=== PATIENT | female | born 1950 | race American Indian/Alaskan Native ===

== ENCOUNTER 2017-04-23 12:27 | Emergency (ER) | payer MEDICARE ==
[2017-04-23 14:14] LABS: Basophils # (Auto) 0.1 K/mm3 (0.0-0.1); Basophils % (Auto) 0.5 % (0.0-1.8); Eosinophils # (Auto) 0.1 K/mm3 (0.0-0.4); Eosinophils % (Auto) 0.4 % (0.0-4.3); Hematocrit 43.3 % (30.3-42.9); Hemoglobin 13.6 gm/dl (10.1-14.3); Lymphocytes # (Auto) 2.9 K/mm3 (1.2-5.4); Lymphocytes % (Auto) 22.9 % (13.4-35.0); Mean Corpuscular HGB Conc 32 % (30-34); Mean Corpuscular Hemoglobin 27 pg (28-32); Mean Corpuscular Volume 85 fl (79-97); Monocytes # (Auto) 0.7 K/mm3 (0.0-0.8); Monocytes % (Auto) 5.5 % (0.0-7.3); Platelet Count 259 K/mm3 (140-440); Red Blood Count 5.07 M/mm3 (3.65-5.03); Red Cell Distribution Width 15.9 % (13.2-15.2)
[2017-04-23 14:39] LABS: Albumin 3.5 g/dL (3.9-5); Calcium 9.3 mg/dL (8.4-10.2)
[2017-04-24] MEDS ORDERED: TORADOL IV ONE (03:28)
[2017-04-24] MEDS ORDERED: MORPHINE IV ONE (03:28)
[2017-04-24] MEDS ORDERED: ZOFRAN IV ONE (03:28)
--- NOTE | 2017-04-24 03:42 | Emergency Department Report ---
ED Abdominal Pain HPI - General Chief Complaint: Abdominal Pain Stated Complaint: ABD PAIN Time Seen by Provider: 04/24/17 02:53 Source: patient Mode of arrival: Ambulatory Limitations: No Limitations - History of Present Illness Initial Comments: 66 yo female TYPE 2 DM ,HTN,CVA X3,CHF HERE WITH C/O LEFT LOWER QUADRANT ABDOMINAL PAIN THAT BEGAN 2 DAYS AGO. SHE NORMALLY GIVES INSULIN INJECTIONS INTO HER ABDOMEN. SHE DENIES FEVER,CHILLS, N/V. PAIN IS NOT IN HER GROIN BUT HER ABDOMEN. MD Complaint: abdominal pain -: Gradual, days(s) (2) Radiation: LLQ Migration to: no migration Severity scale (0 -10): 7 Quality: aching Consistency: constant Improves With: nothing Worsens With: nothing Associated Symptoms: denies: nausea, vomiting, diarrhea, fever, chills, constipation, dysuria, melena - Related Data Previous Rx's Medication Instructions Recorded Last Taken Type Nitrofurantoin [place]/M-Cryst 100 mg PO Q12HR #14 capsule 04/24/17 Unknown Rx [Macrobid CAP] metroNIDAZOLE [Flagyl] 500 mg PO Q8HR #42 tablet 04/24/17 Unknown Rx oxyCODONE /ACETAMINOPHEN [Percocet 2 tab PO Q6HR PRN #14 tablet 04/24/17 Unknown Rx 5/325] Allergies Allergy/AdvReac Type Severity Reaction Status Date / Time No Known Allergies Allergy Unverified 04/23/17 13:03 ED Review of Systems ROS: Stated complaint: ABD PAIN Other details as noted in HPI Constitutional: denies: chills, fever Eyes: denies: eye pain, eye discharge, vision change ENT: denies: ear pain, throat pain Respiratory: denies: cough, shortness of breath, wheezing Cardiovascular: denies: chest pain, palpitations Endocrine: no symptoms reported Gastrointestinal: denies: nausea, vomiting, diarrhea, constipation Genitourinary: denies: urgency, dysuria, discharge Musculoskeletal: denies: back pain, joint swelling, arthralgia Skin: denies: rash, lesions Neurological: denies: headache, weakness, paresthesias Psychiatric: denies: anxiety, depression Hematological/Lymphatic: denies: easy bleeding, easy bruising ED Past Medical Hx - Past Medical History Hx Hypertension: Yes Hx CVA: Yes (X3) Hx Congestive Heart Failure: Yes Hx Diabetes: Yes (TYPE II) - Surgical History Past Surgical History?: No - Social History Smoking Status: Never Smoker Substance Use Type: None - Medications Home Medications: Home Medications Medication Instructions Recorded Confirmed Last Taken Type Nitrofurantoin [place]/M-Cryst 100 mg PO Q12HR #14 capsule 04/24/17 Unknown Rx [Macrobid CAP] metroNIDAZOLE [Flagyl] 500 mg PO Q8HR #42 tablet 04/24/17 Unknown Rx oxyCODONE /ACETAMINOPHEN [Percocet 2 tab PO Q6HR PRN #14 tablet 04/24/17 Unknown Rx 5/325] ED Physical Exam - General Limitations: No Limitations General appearance: alert, in no apparent distress - Head Head exam: Present: atraumatic, normocephalic - Eye Eye exam: Present: normal appearance, EOMI - ENT ENT exam: Present: mucous membranes moist - Neck Neck exam: Present: normal inspection - Respiratory Respiratory exam: Present: normal lung sounds bilaterally, rales (RIGHT BASE OF LUNG). Absent: respiratory distress - Cardiovascular Cardiovascular Exam: Present: regular rate, normal rhythm. Absent: systolic murmur, diastolic murmur, rubs, gallop - GI/Abdominal GI/Abdominal exam: Present: soft, normal bowel sounds - Rectal Rectal exam: Present: deferred - Extremities Exam Extremities exam: Present: normal inspection - Back Exam Back exam: Present: normal inspection - Neurological Exam Neurological exam: Present: alert, oriented X3 - Psychiatric Psychiatric exam: Present: normal affect, normal mood - Skin Skin exam: Present: warm, dry, intact, normal color. Absent: rash ED Course Vital Signs 04/23/17 04/24/17 04/24/17 12:56 02:22 03:57 Temperature 98.3 F 98.3 F Pulse Rate 107 H 71 Respiratory 20 16 16 Rate Blood Pressure 107/69 Blood Pressure 162/90 [Right] O2 Sat by Pulse 96 97 Oximetry 04/24/17 04:27 Temperature Pulse Rate Respiratory 16 Rate Blood Pressure Blood Pressure [Right] O2 Sat by Pulse Oximetry ED Medical Decision Making - Lab Data Result diagrams: 04/23/17 13:41 04/23/17 13:41 - Radiology Data Radiology results: report reviewed (CT ABD/PELVIS: ACUTE DIVERTICULITIS IN DISTAL DESCENDING AND PROXIMAL COLON, 4MM LESION RIGHT HEPATIC LOBE,GALLBLADDER POLYP) Critical care attestation.: If time is entered above; I have spent that time in minutes in the direct care of this critically ill patient, excluding procedure time. ED Disposition Clinical Impression: Diverticulitis Abdominal pain Qualifiers: Abdominal location: lower abdomen, unspecified Qualified Code(s): R10.30 - Lower abdominal pain, unspecified UTI (urinary tract infection) Qualifiers: Urinary tract infection type: acute cystitis Hematuria presence: with hematuria Qualified Code(s): N30.01 - Acute cystitis with hematuria Disposition: TO HOME OR SELFCARE Is pt being admited?: No Does the pt Need Aspirin: No Condition: Stable Instructions: Abdominal Pain (ED), Diverticulitis (ED), Urinary Tract Infection in Women (ED) Additional Instructions: RETURN TO THE ER IF YOUR PAIN GETS TOO SEVERE, OR IF YOU HAVE FEVER, NAUSEA, VOMITING OR FOR ANY CONCERNS . FOLLOW UP WITH YOUR DOCTOR IN2 DAYS PLEASE TAKE ALL YOUR MEDICATION ASA WRITTEN Prescriptions: metroNIDAZOLE [Flagyl] 500 mg PO Q8HR #42 tablet Nitrofurantoin [place]/M-Cryst [Macrobid CAP] 100 mg PO Q12HR #14 capsule oxyCODONE /ACETAMINOPHEN [Percocet 5/325] 2 tab PO Q6HR PRN #14 tablet PRN Reason: Pain Referrals: LAURA REED MD [Primary Care Provider] - 3-5 Days Time of Disposition: 07:25
[2017-04-24 05:22] LABS: Bacteria,Urine 4+ /HPF (Negative); Bilirubin,Urine NEG (Negative); Blood,Urine NEG (Negative); Color,Urine Yellow (Yellow); Mucus,Urine 1+ /HPF; Nitrite,Urine NEG (Negative); Urobilinogen,Urine < 2.0 mg/dL (<2.0)
[2017-04-24] MEDS ORDERED: LEVAQUIN 750MG/150ML 750 MG/150 ML BAG IV ONE (06:05)
--- NOTE | 2017-04-24 06:58 | Cat Scan Report ---
FINAL REPORT EXAM: CT ABDOMEN PELVIS W/O CONTRAST HISTORY: LEFT LOWER QUADRANT PAIN. TECHNIQUE: Axial CT images of the abdomen and pelvis were obtained, following the administration of oral contrast only. Coronal and sagittal reformatted images were also obtained. No prior studies are available for comparison. FINDINGS: There is a 4 mm low attenuating lesion in the posteromedial right hepatic lobe, statistically likely cyst, but too small to characterize. The unenhanced biliary tree, pancreas, spleen, adrenal glands, and kidneys are unremarkable. There is a 2 mm hyperdensity in the gallbladder lumen, representing tiny gallstone versus polyp. Oral contrast has just started to reach the cecum on this exam. There are multiple diverticula scattered throughout the colon, most prominent in the descending and sigmoid colon. There are mild focal pericolonic inflammatory changes adjacent to the lateral aspect of the distal descending colon/proximal sigmoid colon, with mild soft tissue stranding and haziness of the pericolonic fat. There is associated mild thickening of the lateral posterior colonic wall at this region, and mild fluid in the left paracolic recess. These findings are indicative of acute diverticulitis. There is no loculated fluid collection seen to suggest abscess. There is no intestinal obstruction or free air. Of note, the appendix is normal. There is a small fat containing periumbilical ventral hernia. The abdominal aorta is normal in caliber. There is no pathologic abdominal or pelvic lymphadenopathy. The uterus and adnexa demonstrate a grossly normal CT appearance for patient's age. The unopacified urinary bladder is partially collapsed, not well evaluated. There are [id number] spondylotic changes seen throughout the spine. There are moderate degenerative changes at L4-5 and L5-S1, with associated vacuum discs, loss of disc height, and moderate facet osteoarthritis. There is 5 mm anterolisthesis of L4 on L5. There are mild dependent changes at both posterior lung bases. Mild linear scarring or atelectasis is seen in the anterior left lower lobe. IMPRESSION: 1. Colonic diverticulosis, with findings of acute diverticulitis in the distal descending/proximal sigmoid colon. No loculated fluid collection seen to suggest abscess. No intestinal obstruction or free air. 2. 4 mm low attenuating lesion in the right hepatic lobe, too small to characterize. 3. 2 mm hyperdensity in the gallbladder lumen, representing tiny gallstone versus polyp. This can be further evaluated with ultrasound, as clinically warranted.
[2017-04-24 08:46] VITALS: BP 127/57
== END 2017-04-24 09:09 | disposition home or self-care (01) ==
LOC: ED 12:27
DX: K57.92 Diverticulitis of intestine, part unspecified, without perforation or abscess without bleeding (principal); N30.01 Acute cystitis with hematuria; R10.32 Left lower quadrant pain; I10 Essential (primary) hypertension; Z86.73 Personal history of transient ischemic attack (TIA), and cerebral infarction without residual deficits; E11.9 Type 2 diabetes mellitus without complications; I50.9 Heart failure, unspecified
CPT/HCPCS: 36415; 74177; 80053; 81001; 82962; 83690; 83880; 85025; 96365; 96375; 99284; J1885; J1956; J2270; J2405; Q9967

== ENCOUNTER 2017-08-20 12:45 | Emergency (ER) | payer MEDICARE ==
[2017-08-20] MEDS ORDERED: ZOFRAN ONE (12:52)
[2017-08-20] MEDS ORDERED: NORMODYNE IV ONE ×3 (12:52→13:27)
[2017-08-20] MEDS ORDERED: ZOFRAN IV ONE (13:27)
[2017-08-20 13:33] LABS: Basophils % (Auto) 0.5 % (0.0-1.8); Eosinophils # (Auto) 0.2 K/mm3 (0.0-0.4); Eosinophils % (Auto) 2.3 % (0.0-4.3); Hematocrit 43.4 % (30.3-42.9); Hemoglobin 13.7 gm/dl (10.1-14.3); Mean Corpuscular HGB Conc 32 % (30-34); Mean Corpuscular Hemoglobin 27 pg (28-32); Mean Corpuscular Volume 85 fl (79-97); Monocytes # (Auto) 0.4 K/mm3 (0.0-0.8); Monocytes % (Auto) 4.8 % (0.0-7.3); Platelet Count 194 K/mm3 (140-440); Red Cell Distribution Width 16.1 % (13.2-15.2)
--- NOTE | 2017-08-20 13:33 | Cat Scan Report ---
CT scan of head without IV contrast: No previous studies of the liver. History: Mental status. Findings: Ventricles are normal in size and midline in location. There is circumscribed focal area of hemorrhage measuring 1.7 x 1.4 cm in diameter noted at medulla with extension to the erin and midbrain the right of midline. There is ill-defined area of low attenuation noted at left posterior parietal region adjacent to midline and in the midportion of the left frontoparietal region. No extra-axial fluid collection. Normal sinuses and mastoid air cells. Impression: There is brainstem hemorrhage noted as detailed above. Ill-defined areas of low attenuation in the left occipital region and left frontoparietal region probably suggests chronic ischemia though possibly acute ischemia cannot be entirely excluded. Dr. Lamin Cyr was informed of the findings at 1:08 PM on 08/20/17. [place]
[2017-08-20] MEDS ORDERED: APRESOLINE IV ONE (13:36)
--- NOTE | 2017-08-20 13:36 | Emergency Department Report ---
ED Altered Mental Status HPI - General Stated Complaint: UNRESPONSIVE Time Seen by Provider: 08/20/17 12:56 Source: family, EMS Limitations: Altered Mental Status, Physical Limitation - History of Present Illness Initial Comments: Patient with history of CVA MD Complaint: altered mental status, confusion (Sister reports patient has been falling out of bed all morning ) -: hour(s) Severity: severe Consistency of Symptoms: constant - Related Data Previous Rx's Medication Instructions Recorded Last Taken Type Nitrofurantoin [place]/M-Cryst 100 mg PO Q12HR #14 capsule 04/24/17 Unknown Rx [Macrobid CAP] metroNIDAZOLE [Flagyl] 500 mg PO Q8HR #42 tablet 04/24/17 Unknown Rx oxyCODONE /ACETAMINOPHEN [Percocet 2 tab PO Q6HR PRN #14 tablet 04/24/17 Unknown Rx 5/325] Allergies Allergy/AdvReac Type Severity Reaction Status Date / Time No Known Allergies Allergy Unverified 04/23/17 13:03 ED Review of Systems ROS: Stated complaint: UNRESPONSIVE Other details as noted in HPI Comment: Unobtainable due to pts medical conditions ED Past Medical Hx - Past Medical History Hx Hypertension: Yes Hx CVA: Yes (X3) Hx Congestive Heart Failure: Yes Hx Diabetes: Yes (TYPE II) - Social History Smoking Status: Never Smoker Substance Use Type: None - Medications Home Medications: Home Medications Medication Instructions Recorded Confirmed Last Taken Type Nitrofurantoin [place]/M-Cryst 100 mg PO Q12HR #14 capsule 04/24/17 Unknown Rx [Macrobid CAP] metroNIDAZOLE [Flagyl] 500 mg PO Q8HR #42 tablet 04/24/17 Unknown Rx oxyCODONE /ACETAMINOPHEN [Percocet 2 tab PO Q6HR PRN #14 tablet 04/24/17 Unknown Rx 5/325] ED Physical Exam - Other Other exam information: GENERAL: Patient in severe distress. No gag reflex on presentation HEAD: Normocephalic, atraumatic EYES: eyes deviated to the left, sluggish pupillary response HEART: Regular rate and rhythm, no murmur, S1-S2 are auscultated, pulses are symmetric LUNGS: bilateral breath sounds ABDOMEN: soft, no tenderness MUSCULOSKELETAL: no redness, no swelling, no tenderness NEUROLOGIC: no gag reflex, GCS 7, left sided weakness SKIN: Skin is warm and dry, no wounds, no rashes - Assessment Assessment Interval: Baseline - Level of Consciousness 1a. Level of Consciousness: not alert, rep stimuli - LOC Questions 1b. LOC Questions: answers no questions correctly - LOC Command 1c. LOC Commands: performs no tasks correctly - Best Gaze 2. Best Gaze: forced deviation (eyes deviated left) - Visual 3. Visual: complete hemianopia - Facial Palsy 4. Facial Palsy: complete paralysis - Motor Arm 5b. Motor Arm Right: no movement 5a. Motor Arm Left: some gravity effort - Motor Leg 6a. Motor Leg Left: no movement 6b. Motor Leg Right: some gravity effort - Limb Ataxia 7. Limb Ataxia: present 2 limbs - Sensory 8. Sensory: severe/total sensory loss - Best Language 9. Best Language: mute/global aphasia - Dysarthria 10. Dysarthria: intubated or other barrier - Extinction and Inattention 11. Extinction/Inattention: profound inattention ED Course Vital Signs 08/20/17 08/20/17 08/20/17 12:44 12:46 12:47 Pulse Rate 74 96 H Respiratory 21 Rate Blood Pressure 202/124 O2 Sat by Pulse 95 95 96 Oximetry 08/20/17 08/20/17 08/20/17 13:20 13:30 13:46 Pulse Rate 81 74 68 Respiratory 16 20 20 Rate Blood Pressure 184/128 189/128 196/132 O2 Sat by Pulse 100 100 100 Oximetry - Intubation Time Out Performed: Yes Sedative: Etomidate Paralytic: Rocuronium Laryngoscope: Denilson Size: 4 ET Tube Size: 7.5 Tube Secured Depth (cm): 23 Tube Secured Location: lips Tube Placement Confirmation: visualized tube passing t, equal breath sounds bilat, no breath sounds over epi, confirmation by capnometr Patient Tolerated Procedure: well Intubation Complications: none - Lab Data Result diagrams: 08/20/17 13:15 08/20/17 13:15 Lab Results 08/20/17 08/20/17 08/20/17 Range/Units 13:06 13:15 13:15 WBC 7.7 (4.5-11.0) K/mm3 RBC 5.10 H (3.65-5.03) M/mm3 Hgb 13.7 (10.1-14.3) gm/dl Hct 43.4 H (30.3-42.9) % MCV 85 (79-97) fl MCH 27 L (28-32) pg MCHC 32 (30-34) % RDW 16.1 H (13.2-15.2) % Plt Count 194 (140-440) K/mm3 Lymph % (Auto) 26.0 (13.4-35.0) % [place] % (Auto) 4.8 (0.0-7.3) % Eos % (Auto) 2.3 (0.0-4.3) % Baso % (Auto) 0.5 (0.0-1.8) % Lymph # 2.0 (1.2-5.4) K/mm3 [place] # 0.4 (0.0-0.8) K/mm3 Eos # 0.2 (0.0-0.4) K/mm3 Baso # 0.0 (0.0-0.1) K/mm3 Seg Neutrophils % 66.4 (40.0-70.0) % Seg Neutrophils # 5.1 (1.8-7.7) K/mm3 PT (12.2-14.9) Sec. INR (0.87-1.13) APTT (24.2-36.6) Sec. Sodium (137-145) mmol/L Potassium (3.6-5.0) mmol/L Chloride (98-107) mmol/L Carbon Dioxide (22-30) mmol/L Anion Gap mmol/L BUN (7-17) mg/dL Creatinine (0.7-1.2) mg/dL Estimated GFR ml/min BUN/Creatinine Ratio % Glucose (65-100) mg/dL POC Glucose 210 H (70-105) Lactic Acid 1.60 (0.7-2.0) mmol/L Calcium (8.4-10.2) mg/dL Total Bilirubin (0.1-1.2) mg/dL AST (5-40) units/L ALT (7-56) units/L Alkaline Phosphatase (35-129) units/L Total Protein (6.3-8.2) g/dL Albumin (3.9-5) g/dL Albumin/Globulin Ratio % Lipase (13-60) units/L Blood Type 08/20/17 08/20/17 08/20/17 Range/Units 13:15 13:15 13:15 WBC (4.5-11.0) K/mm3 RBC (3.65-5.03) M/mm3 Hgb (10.1-14.3) gm/dl Hct (30.3-42.9) % MCV (79-97) fl MCH (28-32) pg MCHC (30-34) % RDW (13.2-15.2) % Plt Count (140-440) K/mm3 Lymph % (Auto) (13.4-35.0) % [place] % (Auto) (0.0-7.3) % Eos % (Auto) (0.0-4.3) % Baso % (Auto) (0.0-1.8) % Lymph # (1.2-5.4) K/mm3 [place] # (0.0-0.8) K/mm3 Eos # (0.0-0.4) K/mm3 Baso # (0.0-0.1) K/mm3 Seg Neutrophils % (40.0-70.0) % Seg Neutrophils # (1.8-7.7) K/mm3 PT 31.3 H (12.2-14.9) Sec. INR 2.79 H (0.87-1.13) APTT 35.3 (24.2-36.6) Sec. Sodium 138 (137-145) mmol/L Potassium 3.4 L (3.6-5.0) mmol/L Chloride 104.1 (98-107) mmol/L Carbon Dioxide 17 L (22-30) mmol/L Anion Gap 20 mmol/L BUN 35 H (7-17) mg/dL Creatinine 1.7 H (0.7-1.2) mg/dL Estimated GFR 36 ml/min BUN/Creatinine Ratio 21 % Glucose 224 H (65-100) mg/dL POC Glucose (70-105) Lactic Acid (0.7-2.0) mmol/L Calcium 8.8 (8.4-10.2) mg/dL Total Bilirubin 0.20 (0.1-1.2) mg/dL AST 20 (5-40) units/L ALT 18 (7-56) units/L Alkaline Phosphatase 80 (35-129) units/L Total Protein 6.9 (6.3-8.2) g/dL Albumin 3.5 L (3.9-5) g/dL Albumin/Globulin Ratio 1.0 % Lipase 16 (13-60) units/L Blood Type O POSITIVE Laboratory Results - last 24 hr 08/20/17 08/20/17 08/20/17 13:06 13:15 13:15 WBC 7.7 RBC 5.10 H Hgb 13.7 Hct 43.4 H MCV 85 MCH 27 L MCHC 32 RDW 16.1 H Plt Count 194 Lymph % (Auto) 26.0 [place] % (Auto) 4.8 Eos % (Auto) 2.3 Baso % (Auto) 0.5 Lymph # 2.0 [place] # 0.4 Eos # 0.2 Baso # 0.0 Seg Neutrophils % 66.4 Seg Neutrophils # 5.1 PT INR APTT Sodium Potassium Chloride Carbon Dioxide Anion Gap BUN Creatinine Estimated GFR BUN/Creatinine Ratio Glucose POC Glucose 210 H Lactic Acid 1.60 Calcium Total Bilirubin AST ALT Alkaline Phosphatase Total Protein Albumin Albumin/Globulin Ratio Lipase Blood Type Antibody Screen 08/20/17 08/20/17 08/20/17 13:15 13:15 13:15 WBC RBC Hgb Hct MCV MCH MCHC RDW Plt Count Lymph % (Auto) [place] % (Auto) Eos % (Auto) Baso % (Auto) Lymph # [place] # Eos # Baso # Seg Neutrophils % Seg Neutrophils # PT 31.3 H INR 2.79 H APTT 35.3 Sodium 138 Potassium 3.4 L Chloride 104.1 Carbon Dioxide 17 L Anion Gap 20 BUN 35 H Creatinine 1.7 H Estimated GFR 36 BUN/Creatinine Ratio 21 Glucose 224 H POC Glucose Lactic Acid Calcium 8.8 Total Bilirubin 0.20 AST 20 ALT 18 Alkaline Phosphatase 80 Total Protein 6.9 Albumin 3.5 L Albumin/Globulin Ratio 1.0 Lipase 16 Blood Type O POSITIVE Antibody Screen Negative - Radiology Data Radiology results: report reviewed At 1327 Radiology reports rightsided medulla, erin, midbrain hemorrhage. - Medical Decision Making At 1404 Dr. Shultz from [place] (present on the phone line are both Neurosurgery and Neurology) recommend [facility] to reverse INR, Vitamin K 10 mg IV, Maintain SBP < 160, fly to [place], poor prognosis. Dr. Shultz accepting physician - NEXUS Criteria Focal neurological deficit present: Yes NEXUS results: C-Spine cannot be cleared clinically by these results. Imaging is required. Critical Care Time: Yes Critical care time in (mins) excluding proc time.: 42 Critical care attestation.: If time is entered above; I have spent that time in minutes in the direct care of this critically ill patient, excluding procedure time. ED Disposition Clinical Impression: Intracranial hemorrhage, Hypertensive emergency, Elevated INR Disposition: DC/TX-70 ANOTHER TYPE HLTHCARE Is pt being admited?: No Condition: Stable Instructions: Hypertension (ED) Time of Disposition: 14:16
--- NOTE | 2017-08-20 13:42 | Cat Scan Report ---
CT scan of cervical spine: Next History: Fall. Findings: Normal height of vertebral bodies. Decrease in height of the C5-C6 and C6-C7. Sclerotic articular surfaces with peripheral osteophytes suggestive of cervical spondylosis. No fracture. Normal prevertebral soft tissue. Impression: Moderate to severe cervical spondylosis C5-C6 and C6-7. No evidence of acute fracture.
[2017-08-20 13:44] LABS: INR 2.79 (0.87-1.13); Partial Thromboplastin Time 35.3 Sec. (24.2-36.6)
[2017-08-20 13:48] LABS: Albumin 3.5 g/dL (3.9-5); Calcium 8.8 mg/dL (8.4-10.2)
[2017-08-20] MEDS ORDERED: CARDENE 50 MG in NACL 0.9% 250ML 230 ML IV SCH (14:00)
--- NOTE | 2017-08-20 14:19 | XRay Report ---
Single view chest: History: Post intubation. Findings: Borderline cardiomegaly. Tip of endotracheal tube in normal position. Trachea is midline. Mild pulmonary venous congestion due to no consolidation or pleural effusion. Impression: Mild pulmonary venous congestion. No pneumothorax. A
[2017-08-20] MEDS ORDERED: ARTIFICIAL TEARS OPHTH OINT OU PRN (14:31)
[2017-08-20] MEDS ORDERED: DIPRIVAN 10 MG/ML 1,000 MG/100 ML BOTTLE IV ONE (14:31)
[2017-08-20] MEDS ORDERED: VASELINE LIP THERAPY TP PRN (14:31)
[2017-08-20] MEDS ORDERED: NACL 0.9% 1000 ML 1,000 ML ONE (14:48)
[2017-08-20 14:53] LABS: Bacteria,Urine 1+ /HPF (Negative); Bilirubin,Urine NEG (Negative); Blood,Urine NEG (Negative); Color,Urine Straw (Yellow); Urobilinogen,Urine < 2.0 mg/dL (<2.0)
[2017-08-20 14:54] LABS: Protein,Urine >500 mg/dL (Negative)
[2017-08-20] MEDS ORDERED: NACL 0.9% 1000 ML 1,000 ML IV ONE (14:56)
[2017-08-20] MEDS ORDERED: NACL 0.9% 500 ML IV SCH (15:00)
[2017-08-20] MEDS ORDERED: VITAMIN K (ADULT ONLY) 10 MG in NACL 0.9% 50 ML IV ONE (15:00)
[2017-08-20] MEDS ORDERED: DIPRIVAN 10 MG/ML 1,000 MG/100 ML BOTTLE IV SCH (15:00)
[2017-08-20 15:17] VITALS: BP 139/87
[2017-08-20] MEDS ORDERED: KCENTRA IV SCH (16:00)
[2017-08-20] MEDS ORDERED: STERILE WATER IV SCH (16:00)
== END 2017-08-20 15:12 | disposition other institution (70) ==
LOC: ED 12:45
DX: I62.9 Nontraumatic intracranial hemorrhage, unspecified (principal); I10 Essential (primary) hypertension; E11.9 Type 2 diabetes mellitus without complications
CPT/HCPCS: 31500; 36415; 51702; 70450; 71045; 72125; 80053; 81001; 82140; 82803; 82962; 83690; 83880; 84484; 85025; 85610; 85730; 86850; 86900; 86901; 87040; 94002; 96365; 96368; 96375; 99291; J0360; J2405; J2704; J3430; J7030; J7050; J7195

== ENCOUNTER 2017-11-04 11:56 | Emergency (ER) | payer MEDICARE ==
[2017-11-04] MEDS ORDERED: NACL 0.9% 1000 ML 1,000 ML IV ONE (13:08)
--- NOTE | 2017-11-04 13:28 | Emergency Department Report ---
ED General Adult HPI - General Chief complaint: Abdominal Pain Stated complaint: ABOMINAL PAIN Time Seen by Provider: 11/04/17 13:16 Source: patient, old records reviewed Mode of arrival: Stretcher Limitations: No Limitations, Physical Limitation - History of Present Illness Initial comments: This is a 67-year-old female who was unknown to this provider previously, has a past medical history of renal insufficiency, stroke, right-sided facial paresis , left lower extremity weakness, feeding tube, diverticulosis, diverticulitis. The patient presents to the ER with a complaint of left lower quadrant and suprapubic abdominal pain which is sharp and aching, increases with palpation, decreases with rest, and associated with no vomiting or urinary symptoms, intermittent brownish diarrhea. No recent travel, no recent antibiotic use. The patient endorses intermittent nausea. There is no chest pain or shortness of breath which is new or different. -: Gradual Location: abdomen Quality: aching Consistency: intermittent Improves with: rest Worsens with: movement Associated Symptoms: loss of appetite, malaise, nausea/vomiting, weakness. denies: confusion, chest pain, cough, diaphoresis, fever/chills, headaches, rash , seizure, shortness of breath, syncope - Related Data Previous Rx's Medication Instructions Recorded Last Taken Type Nitrofurantoin Ogle/M-Cryst 100 mg PO Q12HR #14 capsule 04/24/17 Unknown Rx [Macrobid CAP] metroNIDAZOLE [Flagyl] 500 mg PO Q8HR #42 tablet 04/24/17 Unknown Rx oxyCODONE /ACETAMINOPHEN [Percocet 2 tab PO Q6HR PRN #14 tablet 04/24/17 Unknown Rx 5/325] Acetaminophen [Tylenol Arthritis] 650 mg PO Q6HR PRN #30 tablet.er 11/04/17 Unknown Rx Famotidine [Pepcid] 20 mg PO QDAY #30 tablet 11/04/17 Unknown Rx Ondansetron [Zofran Odt] 4 mg PO Q8HR PRN #20 tab.rapdis 11/04/17 Unknown Rx Allergies Allergy/AdvReac Type Severity Reaction Status Date / Time No Known Allergies Allergy Unverified 04/23/17 13:03 ED Review of Systems ROS: Stated complaint: ABOMINAL PAIN Other details as noted in HPI Constitutional: malaise Eyes: denies: vision change ENT: denies: epistaxis Respiratory: denies: cough Cardiovascular: denies: chest pain Gastrointestinal: abdominal pain. denies: constipation Genitourinary: denies: dysuria Musculoskeletal: arthralgia Skin: denies: lesions Neurological: weakness ED Past Medical Hx - Past Medical History Hx Hypertension: Yes Hx CVA: Yes (X3) Hx Congestive Heart Failure: Yes Hx Diabetes: Yes (TYPE II) - Surgical History Past Surgical History?: Yes Additional Surgical History: g tube placement - Social History Smoking Status: Never Smoker Substance Use Type: None - Medications Home Medications: Home Medications Medication Instructions Recorded Confirmed Last Taken Type Nitrofurantoin Ogle/M-Cryst 100 mg PO Q12HR #14 capsule 04/24/17 Unknown Rx [Macrobid CAP] metroNIDAZOLE [Flagyl] 500 mg PO Q8HR #42 tablet 04/24/17 Unknown Rx oxyCODONE /ACETAMINOPHEN [Percocet 2 tab PO Q6HR PRN #14 tablet 04/24/17 Unknown Rx 5/325] Acetaminophen [Tylenol Arthritis] 650 mg PO Q6HR PRN #30 tablet.er 11/04/17 Unknown Rx Famotidine [Pepcid] 20 mg PO QDAY #30 tablet 11/04/17 Unknown Rx Ondansetron [Zofran Odt] 4 mg PO Q8HR PRN #20 tab.rapdis 11/04/17 Unknown Rx ED Physical Exam - General Limitations: Physical Limitation General appearance: alert, in no apparent distress - Head Head exam: Present: atraumatic, normocephalic - Eye Eye exam: Present: normal appearance, EOMI. Absent: nystagmus - ENT ENT exam: Present: normal orophraynx, mucous membranes moist - Neck Neck exam: Present: normal inspection, full ROM - Respiratory Respiratory exam: Present: normal lung sounds bilaterally. Absent: respiratory distress - Cardiovascular Cardiovascular Exam: Present: regular rate, normal rhythm, normal heart sounds. Absent: systolic murmur, diastolic murmur, rubs, gallop - GI/Abdominal GI/Abdominal exam: Present: soft, tenderness, normal bowel sounds, other ( feeding tube is noted in the suprapubic region. There is left lower quadrant ecchymosis noted, suggestive of recent anticoagulation injection.). Absent: distended, guarding, rebound, rigid, pulsatile mass - Extremities Exam Extremities exam: Present: normal inspection, full ROM. Absent: tenderness, pedal edema, joint swelling, calf tenderness - Back Exam Back exam: Present: normal inspection, full ROM. Absent: tenderness, CVA tenderness (R), paraspinal tenderness, vertebral tenderness - Neurological Exam Neurological exam: Present: alert, oriented X3, motor sensory deficit (there is 4 out of 5 strength in the left lower extremity. This is chronic. There is 5 out of 5 strength in the bilateral upper extremities and right lower extremity. Sensation is intact to light touch in 4 extremities.). Absent: CN II-XII intact (extraocular movements are intact. Right-sided facial weakness. Tongue is midline. Speech is slurred, this is chronic as per the patient.) - Psychiatric Psychiatric exam: Present: normal affect, normal mood - Skin Skin exam: Present: warm, dry, intact, normal color. Absent: rash ED Course Vital Signs 11/04/17 11/04/17 11/04/17 12:28 12:53 13:31 Temperature 98 F Pulse Rate 90 90 93 H Respiratory 16 25 H 18 Rate Blood Pressure 135/77 145/84 O2 Sat by Pulse 98 99 Oximetry 11/04/17 11/04/17 11/04/17 14:00 14:30 15:00 Temperature Pulse Rate 89 87 90 Respiratory 20 16 Rate Blood Pressure 144/92 168/94 159/96 O2 Sat by Pulse 99 99 99 Oximetry 11/04/17 11/04/17 11/04/17 15:30 16:15 16:31 Temperature Pulse Rate 87 94 H 93 H Respiratory 22 22 Rate Blood Pressure 168/97 O2 Sat by Pulse 99 99 100 Oximetry - Reevaluation(s) Reevaluation #1: 11/04/17 17:39 Differential diagnosis, including not limited to: Hernia, constipation, diverticulitis, diverticulosis, anterior abdominal wall ecchymosis, anterior abdominal wall hematoma Assessment and plan: 67-year-old female with reproducible abdominal wall tenderness and ecchymosis, appears to be in distribution of Lovenox/ anticoagulation distribution in the left lower quadrant. Laboratory studies otherwise appear to be at baseline, has chronic renal insufficiency, increased CO2 on laboratory studies may be secondary to underlying renal insufficiency. The patient's pain and symptoms were treated with nonnarcotic pain medication, she was observed in the ER for hours without clinical decompensation, and she will be discharged home with prescriptions for pain medicine nausea medicine, and instructions follow up with outpatient primary care. ED Medical Decision Making - Lab Data Result diagrams: 11/04/17 13:37 11/04/17 13:37 Vital Signs 11/04/17 11/04/17 11/04/17 12:28 12:53 13:31 Temperature 98 F Pulse Rate 90 90 93 H Respiratory 16 25 H 18 Rate Blood Pressure 135/77 145/84 O2 Sat by Pulse 98 99 Oximetry 11/04/17 11/04/17 11/04/17 14:00 14:30 15:00 Temperature Pulse Rate 89 87 90 Respiratory 20 16 Rate Blood Pressure 144/92 168/94 159/96 O2 Sat by Pulse 99 99 99 Oximetry 11/04/17 11/04/17 11/04/17 15:30 16:15 16:31 Temperature Pulse Rate 87 94 H 93 H Respiratory 22 22 Rate Blood Pressure 168/97 O2 Sat by Pulse 99 99 100 Oximetry Lab Results 11/04/17 11/04/17 11/04/17 Range/Units 13:37 13:37 13:37 WBC 11.3 H (4.5-11.0) K/mm3 RBC 4.21 (3.65-5.03) M/mm3 Hgb 11.2 (10.1-14.3) gm/dl Hct 37.0 (30.3-42.9) % MCV 88 (79-97) fl MCH 27 L (28-32) pg MCHC 30 (30-34) % RDW 17.2 H (13.2-15.2) % Plt Count 366 (140-440) K/mm3 PT (12.2-14.9) Sec. INR (0.87-1.13) APTT (24.2-36.6) Sec. Sodium 137 (137-145) mmol/L Potassium 4.7 (3.6-5.0) mmol/L Chloride 104.9 (98-107) mmol/L Carbon Dioxide 15 L (22-30) mmol/L Anion Gap 22 mmol/L BUN 30 H (7-17) mg/dL Creatinine 1.9 H (0.7-1.2) mg/dL Estimated GFR 32 ml/min BUN/Creatinine Ratio 16 % Glucose 135 H (65-100) mg/dL Calcium 10.7 H (8.4-10.2) mg/dL Total Bilirubin 0.30 (0.1-1.2) mg/dL AST 14 (5-40) units/L ALT 8 (7-56) units/L Alkaline Phosphatase 70 (35-129) units/L Total Creatine Kinase 50 (30-135) units/L Total Protein 7.4 (6.3-8.2) g/dL Albumin 3.2 L (3.9-5) g/dL Albumin/Globulin Ratio 0.8 % Urine Color (Yellow) Urine Turbidity (Clear) Urine pH (5.0-7.0) Ur Specific Harmony (1.003-1.030) Urine Protein (Negative) mg/dL Urine Glucose (UA) (Negative) mg/dL Urine Ketones (Negative) mg/dL Urine Blood (Negative) Urine Nitrite (Negative) Urine Bilirubin (Negative) Urine Urobilinogen (<2.0) mg/dL Ur Leukocyte Esterase (Negative) Urine WBC (Auto) (0.0-6.0) /HPF Urine RBC (Auto) (0.0-6.0) /HPF U Epithel Cells (Auto) (0-13.0) /HPF Urine Bacteria (Auto) (Negative) /HPF Hyaline Casts /LPF Urine Mucus /HPF Urine Yeast (Budding) /HPF 11/04/17 11/04/17 Range/Units 14:26 Unknown WBC (4.5-11.0) K/mm3 RBC (3.65-5.03) M/mm3 Hgb (10.1-14.3) gm/dl Hct (30.3-42.9) % MCV (79-97) fl MCH (28-32) pg MCHC (30-34) % RDW (13.2-15.2) % Plt Count (140-440) K/mm3 PT 14.2 (12.2-14.9) Sec. INR 1.05 (0.87-1.13) APTT 37.8 H (24.2-36.6) Sec. Sodium (137-145) mmol/L Potassium (3.6-5.0) mmol/L Chloride (98-107) mmol/L Carbon Dioxide (22-30) mmol/L Anion Gap mmol/L BUN (7-17) mg/dL Creatinine (0.7-1.2) mg/dL Estimated GFR ml/min BUN/Creatinine Ratio % Glucose (65-100) mg/dL Calcium (8.4-10.2) mg/dL Total Bilirubin (0.1-1.2) mg/dL AST (5-40) units/L ALT (7-56) units/L Alkaline Phosphatase (35-129) units/L Total Creatine Kinase (30-135) units/L Total Protein (6.3-8.2) g/dL Albumin (3.9-5) g/dL Albumin/Globulin Ratio % Urine Color Yellow (Yellow) Urine Turbidity Hazy (Clear) Urine pH 5.0 (5.0-7.0) Ur Specific Harmony 1.017 (1.003-1.030) Urine Protein 100 mg/dl (Negative) mg/dL Urine Glucose (UA) Neg (Negative) mg/dL Urine Ketones Neg (Negative) mg/dL Urine Blood Neg (Negative) Urine Nitrite Neg (Negative) Urine Bilirubin Neg (Negative) Urine Urobilinogen < 2.0 (<2.0) mg/dL Ur Leukocyte Esterase Neg (Negative) Urine WBC (Auto) 4.0 (0.0-6.0) /HPF Urine RBC (Auto) 4.0 (0.0-6.0) /HPF U Epithel Cells (Auto) 15.0 H (0-13.0) /HPF Urine Bacteria (Auto) 1+ (Negative) /HPF Hyaline Casts 1 /LPF Urine Mucus Few /HPF Urine Yeast (Budding) 1+ /HPF - Radiology Data Radiology results: report reviewed, image reviewed Print Report Referring Physician: MARY MILLS Patient Name: CORNELIO ROBERSON Date of : 1950 Sex: Female Report Date: 2017-11-04 Report Status: Finalized Findings [facility] [address] [place] [address] Cat Scan Report Signed Patient: CORNELIO ROBERSON MR#: [id number] : 1950 Acct:[id number] Age/Sex: 67 / F ADM Date: 11/04/17 Loc: ED Attending Dr: Ordering Physician: MARY MILLS MD Date of Service: 11/04/17 Procedure(s): CT abdomen pelvis wo con Accession Number(s): [id number] cc: MARY MILLS MD FINAL REPORT EXAM: CT ABDOMEN PELVIS WO CON HISTORY: abd pain TECHNIQUE: CT of the abdomen and pelvis was performed without intravenous contrast. Reconstructions were included in the coronal and sagittal planes. PRIORS: CT of the abdomen and pelvis from 04/24/2017. FINDINGS: Lower thorax: Multiple areas of scarring and atelectasis are seen in the lung bases. Bronchiectasis is seen in the lung bases. Coronary artery calculi are seen. Liver: The liver is normal in attenuation. No intrahepatic biliary duct dilation. Two tiny low-attenuation right hepatic lesions are too small to characterize but likely represent small cysts. Gallbladder/ biliary system: Cholelithiasis is seen. The common bile duct appears nondilated. Spleen: No splenic lesions are seen. Pancreas: No pancreatic lesions are seen. No pancreatic duct dilation. Kidneys: No renal masses, cysts or hydronephrosis. No renal or ureteral calcifications. Adrenal glands: No adrenal masses. Vasculature: The abdominal aorta is nondilated. Atherosclerotic calculi are seen in the abdominal aorta. Lymph nodes: No enlarged lymph nodes are seen in the abdomen or pelvis. Bowel, mesentery, peritoneum: No bowel obstruction. No free fluid or free air. The appendix is normal. Colonic diverticulosis is seen. No evidence of diverticulitis. A percutaneous gastrostomy tube is present. No bowel wall thickening. Urinary bladder: No filling defects are seen. Pelvis: Normal anatomy is noted. No masses. Abdominal wall: There is a fat containing umbilical hernia. Bones: Degenerative changes are seen in the spine. Grade 1 anterolisthesis of L4 on L5 is noted likely related to severe degenerative changes. Severe degenerative changes of the hips are seen, left worse than right. IMPRESSION: 1. Cholelithiasis. 2. Colonic diverticulosis without diverticulitis. 3. Fat containing umbilical hernia. 4. Small probable simple right hepatic cysts. 5. Coronary artery calculi. Transcribed By: MG Dictated By: ESE MOCTEZUMA MD Electronically Authenticated By: ESE MOCTEZUMA MD Signed Date/Time: 11/04/17 7658 Critical care attestation.: If time is entered above; I have spent that time in minutes in the direct care of this critically ill patient, excluding procedure time. ED Disposition Clinical Impression: Abdominal pain Disposition: DC-01 TO HOME OR SELFCARE Is pt being admited?: No Does the pt Need Aspirin: No Condition: Stable Instructions: Abdominal Pain (ED) Additional Instructions: Take the pain medication, nausea medication as needed/directed. Follow up with a primary care doctor within the next 3-5 days for repeat checkup/evaluation. Avoid consumption of heavy, spicy foods, and avoid consumption of alcohol, Motrin, ibuprofen, Naprosyn. Return to the ER right away with new pain, worsened pain, migration of pain, fevers, chills, lethargy, irritability, projectile vomiting, change in mental status, confusion, inability to tolerate liquid feeds. Referrals: PRIMARY CARE, [Primary Care Provider] - 3-5 Days RENÉ FLORES MD [Staff Physician] - 3-5 Days MAYNOR MCKEE MD [Staff Physician] - 3-5 Days [facility] [Provider Group] - 3-5 Days
[2017-11-04 13:49] LABS: Mean Corpuscular HGB Conc 30 % (30-34); Mean Corpuscular Hemoglobin 27 pg (28-32); Mean Corpuscular Volume 88 fl (79-97); Platelet Count 366 K/mm3 (140-440); Red Blood Count 4.21 M/mm3 (3.65-5.03); Red Cell Distribution Width 17.2 % (13.2-15.2)
[2017-11-04 13:50] LABS: Hemoglobin 11.2 gm/dl (10.1-14.3)
[2017-11-04 14:03] LABS: Albumin 3.2 g/dL (3.9-5); Calcium 10.7 mg/dL (8.4-10.2)
[2017-11-04] MEDS ORDERED: TYLENOL ONE (14:14)
[2017-11-04] MEDS ORDERED: ZOFRAN ODT ONE (14:15)
[2017-11-04] MEDS: NACL 0.9% 500 ML 500 ML IV ONE (14:28)
[2017-11-04] MEDS: TYLENOL FEEDTUBE STA (14:29)
[2017-11-04] MEDS: ZOFRAN ORAL LIQ FEEDTUBE ONE (14:29)
[2017-11-04 14:47] LABS: Bacteria,Urine 1+ /HPF (Negative); Bilirubin,Urine NEG (Negative); Blood,Urine NEG (Negative); Color,Urine Yellow (Yellow); Hyaline Casts,Urine 1 /LPF; Mucus,Urine FEW /HPF; Urobilinogen,Urine < 2.0 mg/dL (<2.0)
[2017-11-04 14:58] LABS: INR 1.05 (0.87-1.13)
[2017-11-04 14:59] LABS: Partial Thromboplastin Time 37.8 Sec. (24.2-36.6)
[2017-11-04] MEDS ORDERED: NACL 0.9% 1000 ML 1,000 ML ONE (16:41)
--- NOTE | 2017-11-04 17:12 | Cat Scan Report ---
FINAL REPORT EXAM: CT ABDOMEN PELVIS WO CON HISTORY: abd pain TECHNIQUE: CT of the abdomen and pelvis was performed without intravenous contrast. Reconstructions were included in the coronal and sagittal planes. PRIORS: CT of the abdomen and pelvis from 04/24/2017. FINDINGS: Lower thorax: Multiple areas of scarring and atelectasis are seen in the lung bases. Bronchiectasis is seen in the lung bases. Coronary artery calculi are seen. Liver: The liver is normal in attenuation. No intrahepatic biliary duct dilation. Two tiny low-attenuation right hepatic lesions are too small to characterize but likely represent small cysts. Gallbladder/ biliary system: Cholelithiasis is seen. The common bile duct appears nondilated. Spleen: No splenic lesions are seen. Pancreas: No pancreatic lesions are seen. No pancreatic duct dilation. Kidneys: No renal masses, cysts or hydronephrosis. No renal or ureteral calcifications. Adrenal glands: No adrenal masses. Vasculature: The abdominal aorta is nondilated. Atherosclerotic calculi are seen in the abdominal aorta. Lymph nodes: No enlarged lymph nodes are seen in the abdomen or pelvis. Bowel, mesentery, peritoneum: No bowel obstruction. No free fluid or free air. The appendix is normal. Colonic diverticulosis is seen. No evidence of diverticulitis. A percutaneous gastrostomy tube is present. No bowel wall thickening. Urinary bladder: No filling defects are seen. Pelvis: Normal anatomy is noted. No masses. Abdominal wall: There is a fat containing umbilical hernia. Bones: Degenerative changes are seen in the spine. Grade 1 anterolisthesis of L4 on L5 is noted likely related to severe degenerative changes. Severe degenerative changes of the hips are seen, left worse than right. IMPRESSION: 1. Cholelithiasis. 2. Colonic diverticulosis without diverticulitis. 3. Fat containing umbilical hernia. 4. Small probable simple right hepatic cysts. 5. Coronary artery calculi.
[2017-11-04 19:38] VITALS: BP 155/103
== END 2017-11-04 19:38 | disposition home or self-care (01) ==
LOC: ED 11:56
DX: R10.32 Left lower quadrant pain (principal); R19.7 Diarrhea, unspecified; R11.0 Nausea
CPT/HCPCS: 36415; 74176; 80053; 81001; 82550; 85027; 85610; 85730; 87086; 99284; J7030; J7040; Q0162

== ENCOUNTER 2018-07-01 20:43 | Emergency (ER) | payer MEDICARE ==
--- NOTE | 2018-07-01 20:54 | Emergency Department Report ---
ED CPR HPI - General Chief Complaint: Cardiac Arrest/CPR Stated Complaint: CARDIAC ARREST Time Seen by Provider: 07/01/18 20:51 Source: family, EMS (verbal report received from EMS.ems notes not available at time of chart dictation), RN notes reviewed, old records reviewed Mode of arrival: Stretcher Limitations: Altered Mental Status - History of Present Illness Initial Comments: This is a 68-year-old female who is brought to the hospital by emergency medical services as an out of hospital cardiac arrest. EMS estimates the patient has been pulseless for over 30 minutes, and has not had a shockable rhythm since the patient has been in their care. EMS reports that the patient reportedly earlier on today complained about chest pain, went to bed, and was found unresponsive. EMS reports the patient appears to be experiencing shocks from her life vest. EMS reports appropriate Accu-Chek, they continued high quality CPR, provided [id number]-[id number] ventilation, and gave 4 rounds of epinephrine. Upon arrival to the emergency room, the patient is pulseless, obtunded, GCS of 3, pupils fixed and dilated, does not have a shockable rhythm and no pulses are palpated. Standard ACLS interventions are administered. Unfortunately, pulses cannot be obtained. Resuscitation efforts were terminated secondary to medical futility, and prolonged downtime. Family was subsequently informed. MD Complaint: found unresponsive -: minute(s) Bystander CPR Performed: Yes Initial Findings in the Field: no pulse ROSC in the Field: No Treatments Prior to Arrival: BMV, chest compressions, epinephrine mgs # - Related Data Home Medications Medication Instructions Recorded Confirmed Last Taken Promethazine [Phenergan TAB] 25 mg PO Q4HR PRN 02/20/18 02/20/18 Unknown Previous Rx's Medication Instructions Recorded Last Taken Type Nitrofurantoin Posey/M-Cryst 100 mg PO Q12HR #14 capsule 04/24/17 Unknown Rx [Macrobid CAP] Acetaminophen [Tylenol Arthritis] 650 mg PO Q6HR PRN #30 tablet.er 11/04/17 Unknown Rx Famotidine [Pepcid] 20 mg PO QDAY #30 tablet 11/04/17 Unknown Rx Ondansetron [Zofran ODT TAB] 4 mg PO Q8HR PRN #20 tab.rapdis 11/04/17 Unknown Rx Aspirin 81 mg PO DAILY #30 tab.chew 02/22/18 Unknown Rx Carvedilol [Coreg] 12.5 mg PO BID #60 tablet 02/22/18 Unknown Rx Insulin NPH Hum/Reg Insulin Hm 100 unit SQ BID 30 Days ml 02/22/18 Unknown Rx [HumuLIN 70-30 Vial] Isosorbibe Dinit/Hydralazine 1 each PO Q8H #90 tablet 02/22/18 Unknown Rx [Bidil Tablet] oxyCODONE /ACETAMINOPHEN [Percocet 2 tab PO Q6HR PRN #14 tablet 02/22/18 Unknown Rx 5/325 mg] Calcitriol [Rocaltrol] 0.5 mcg PO QDAY #30 capsule 02/25/18 Unknown Rx Fluticasone [Flonase] 100 mcg NS QDAY #1 bottle 02/25/18 Unknown Rx amLODIPine [Norvasc] 10 mg PO QDAY #30 tablet 02/25/18 Unknown Rx hydroCHLOROthiazide [HCTZ] 25 mg PO QDAY #30 tablet 02/25/18 Unknown Rx Allergies Allergy/AdvReac Type Severity Reaction Status Date / Time No Known Allergies Allergy Verified 02/19/18 12:54 ED Review of Systems ROS: Stated complaint: CARDIAC ARREST Other details as noted in HPI Comment: Unobtainable due to pts medical conditions ED Past Medical Hx - Past Medical History Hx Hypertension: Yes Hx CVA: Yes (X3) Hx Congestive Heart Failure: Yes Hx Diabetes: Yes (TYPE II) - Surgical History Additional Surgical History: g tube placement - Social History Smoking Status: Never Smoker - Medications Home Medications: Home Medications Medication Instructions Recorded Confirmed Last Taken Type Nitrofurantoin Posey/M-Cryst 100 mg PO Q12HR #14 capsule 04/24/17 02/20/18 Unknown Rx [Macrobid CAP] Acetaminophen [Tylenol Arthritis] 650 mg PO Q6HR PRN #30 tablet.er 11/04/17 02/20/18 Unknown Rx Famotidine [Pepcid] 20 mg PO QDAY #30 tablet 11/04/17 02/20/18 Unknown Rx Ondansetron [Zofran ODT TAB] 4 mg PO Q8HR PRN #20 tab.rapdis 11/04/17 02/20/18 Unknown Rx Promethazine [Phenergan TAB] 25 mg PO Q4HR PRN 02/20/18 02/20/18 Unknown History Aspirin 81 mg PO DAILY #30 tab.chew 02/22/18 Unknown Rx Carvedilol [Coreg] 12.5 mg PO BID #60 tablet 02/22/18 Unknown Rx Insulin NPH Hum/Reg Insulin Hm 100 unit SQ BID 30 Days ml 02/22/18 Unknown Rx [HumuLIN 70-30 Vial] Isosorbibe Dinit/Hydralazine 1 each PO Q8H #90 tablet 02/22/18 Unknown Rx [Bidil Tablet] oxyCODONE /ACETAMINOPHEN [Percocet 2 tab PO Q6HR PRN #14 tablet 02/22/18 Unknown Rx 5/325 mg] Calcitriol [Rocaltrol] 0.5 mcg PO QDAY #30 capsule 02/25/18 Unknown Rx Fluticasone [Flonase] 100 mcg NS QDAY #1 bottle 02/25/18 Unknown Rx amLODIPine [Norvasc] 10 mg PO QDAY #30 tablet 02/25/18 Unknown Rx hydroCHLOROthiazide [HCTZ] 25 mg PO QDAY #30 tablet 02/25/18 Unknown Rx ED Physical Exam - General Limitations: Other (nonverbal) General appearance: other (nonverbal) - Head Head exam: Present: atraumatic - Eye Eye exam: Present: other (pupils are midpoint, do not react to light) - ENT ENT exam: Present: other (oral airway device noted) - Neck Neck exam: Present: normal inspection - Respiratory Respiratory exam: Present: other (no breath sounds appreciated). Absent: normal lung sounds bilaterally, prolonged expiratory - Cardiovascular Cardiovascular Exam: Present: other (patient is pulseless) - GI/Abdominal GI/Abdominal exam: Present: soft - Extremities Exam Extremities exam: Present: normal inspection, other (no pulses are noted) - Back Exam Back exam: Present: normal inspection - Neurological Exam Neurological exam: Present: altered, other (nonverbal, GCS of 3) - Psychiatric Psychiatric exam: Present: other (patient is nonverbal) - Skin Skin exam: Present: dry ED Medical Decision Making - Medical Decision Making Differential diagnosis, including not limited to, acute coronary syndrome, intracranial hemorrhage, pulmonary embolus, hyperkalemia, sepsis Critical care attestation.: If time is entered above; I have spent that time in minutes in the direct care of this critically ill patient, excluding procedure time. ED Disposition Clinical Impression: Cardiac arrest Disposition: DC-20 Is pt being admited?: No Does the pt Need Aspirin: No Condition: Undetermined
== END 2018-07-02 00:17 ==
LOC: ED 20:43